=== PATIENT | female | born 1990 | race Caucasian/White ===

== ENCOUNTER 2016-06-08 07:05 | Emergency (ER) | payer SELFPAY ==
[2016-06-08 07:16] VITALS: BMI 29.1
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
[2016-06-08] MEDS ORDERED: ACETAMINOPHEN 1000 MG/100 ML VIAL (NON FORMULARY) IVPB ONE (07:56)
[2016-06-08] MEDS ORDERED: ACETAMINOPHEN 500 MG TABLET (FP) PO ONE (08:02)
[2016-06-08] MEDS ORDERED: ACETAMINOPHEN 325 MG TABLET (FP) ONE (08:03)
[2016-06-08 08:36] VITALS: BP 122/75; PULSE 74; TEMP 97.7
== END 2016-06-08 08:30 | disposition home or self-care (01) ==
LOC: JER 07:05
DX: S09.90XA Unspecified injury of head, initial encounter (principal); V43.62XA Car passenger injured in collision with other type car in traffic accident, initial encounter; Y93.89 Activity, other specified; Y92.410 Unspecified street and highway as the place of occurrence of the external cause
CPT/HCPCS: 99283-25

== ENCOUNTER 2023-06-12 23:54 | Emergency (ER) | payer OTHER ==
[2023-06-13 00:06] VITALS: BP 114/72; PULSE 92; RESP 18; TEMP 99.6; BMI 30.7
[2023-06-13] MEDS ORDERED: ACETAMINOPHEN 500 MG TABLET (FP) ONE (01:13)
[2023-06-13] MEDS: ACETAMINOPHEN 500 MG TABLET (FP) PO ONE (01:16)
[2023-06-13] MEDS ORDERED: ONDANSETRON *ODT* 4 MG TABLET ONE (02:03)
[2023-06-13] MEDS: ONDANSETRON *ODT* 4 MG TABLET SL ONE (02:07)
[2023-06-13] MEDS ORDERED: IBUPROFEN 600 MG TABLET (FP) PO ONE (02:08)
[2023-06-13] MEDS: IBUPROFEN 600 MG TABLET (FP) PO ONE (02:09)
== END 2023-06-13 02:19 | disposition home or self-care (01) ==
LOC: JER 23:54
DX: R05.9 Cough, unspecified (principal); R19.7 Diarrhea, unspecified; Z48.02 Encounter for removal of sutures; J11.1 Influenza due to unidentified influenza virus with other respiratory manifestations; Z20.822 Contact with and (suspected) exposure to COVID-19
CPT/HCPCS: 0241U-QW; 99283-25; Q0162